=== PATIENT | female | born 1940 | race Caucasian/White ===

== ENCOUNTER 2018-12-28 11:02 | Emergency (ER) | payer OTHER ==
[~2018-12-28] VITALS: Ht 147.3 cm; Wt 43.1 kg
[2018-12-28] MEDS ORDERED: KEFLEX500 M1 PO (11:14)
[2018-12-28] MEDS ORDERED: TRAMADOL 50 MG50 MG PO (11:15)
[2018-12-28] MEDS ORDERED: NORCO 10-325 T1 EACH (11:15)
[2018-12-28] MEDS ORDERED: SYNTHROID25 MC1 PO (11:16)
[2018-12-28] MEDS ORDERED: NEURONTIN600 MG PO (11:16)
[2018-12-28] MEDS ORDERED: VITAMIN D3400 UNIT PO (11:17)
[2018-12-28] MEDS ORDERED: [UNRECOGNIZED DRUG - OTHER] PO (11:18)
[2018-12-28 11:33] LABS: HEMATOCRIT 35.2 % (37.0-47.0); HEMOGLOBIN 11.6 gm/dL (12.0-15.0); MCH 28.4 pg (26.0-34.0); MCHC 33.1 g/dL (28.0-37.0); MPV 7.7 fl. (7.2-11.1); NUCLEATED RBCS 0 /100WBC; PLATELET COUNT* 404 thou/uL (150-400); RBC 4.09 mil/uL (4.20-5.00); RDW-CV 13.4 % (10.5-14.5); WBC 6.2 thou/uL (4.0-11.0)
[2018-12-28 11:43] LABS: ANION GAP 9 mmol/L (7-16); BUN 9 mg/dL (7-18); CALCIUM 8.9 mg/dL (8.5-10.1); CHLORIDE 106 mmol/L (98-107); CO2 26 mmol/L (21-32); CREATININE 0.6 mg/dL (0.6-1.3); GLUCOSE 90 mg/dL (70-99); POTASSIUM 3.9 mmol/L (3.5-5.1); SODIUM 141 mmol/L (136-145)
[2018-12-28 11:55] LABS: ALBUMIN 3.3 g/dL (3.4-5.0); ALKALINE PHOSPHATASE 293 U/L (46-116); SGOT 47 U/L (15-37); SGPT 85 U/L (30-65); TOTAL BILIRUBIN 0.3 mg/dL (<0.1-1.0); TOTAL PROTEIN 6.6 g/dL (6.4-8.2); TROPONIN-I LEVEL <0.06 ng/mL (<0.06)
[2018-12-28 12:22] LABS: URINE BILIRUBIN NEGATIVE (Negative); URINE BLOOD NEGATIVE (Negative); URINE CLARITY CLEAR; URINE COLOR YELLOW; URINE GLUCOSE-RANDOM NEGATIVE (Negative); URINE KETONES NEGATIVE (Negative); URINE LEUKOCYTES-REFLEX NEGATIVE (Negative); URINE NITRITE-REFLEX NEGATIVE (Negative); URINE PROTEIN NEGATIVE (Negative); URINE SPECIFIC GRAVITY 1.015 (1.005-1.030); URINE UROBILINOGEN 0.2 E.U./dl (0.2-1.0)
[2018-12-28 12:26] LABS: ABSOLUTE EOSINOPHILS 1.3 thou/uL (0.0-0.7); ABSOLUTE LYMPHOCYTES 1.1 thou/uL (0.8-5.3); ABSOLUTE MONOCYTES 0.3 thou/uL (0.0-1.2); ABSOLUTE NEUTROPHILS 3.5 thou/uL (1.6-8.1); PLATELET ESTIMATE INCREASED
[2018-12-28 13:06] VITALS: BP 145/63
--- NOTE | 2018-12-31 12:55 | EKG ---
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
== END 2018-12-28 13:06 | disposition home or self-care (01) ==
LOC: M.ERS 11:02
PROVIDERS: Nurse Practitioner Family
DX: R53.1 Weakness (principal); R42 Dizziness and giddiness; G62.9 Polyneuropathy, unspecified; E03.9 Hypothyroidism, unspecified; Z88.5 Allergy status to narcotic agent; Z86.2 Personal history of diseases of the blood and blood-forming organs and certain disorders involving the immune mechanism; Z90.49 Acquired absence of other specified parts of digestive tract

== ENCOUNTER 2020-01-12 23:19 | Inpatient (IN) | payer OTHER ==
[~2020-01-12] VITALS: Ht 149.9 cm; Wt 48.5 kg
[~2020-01-12 23:19] MED LIST: KEFLEX500 M1 PO; NEURONTIN600 MG PO; NORCO 10-325 T1 EACH; SYNTHROID25 MC1 PO; TRAMADOL 50 MG50 MG PO; VITAMIN D-40010 MCG PO; [UNRECOGNIZED DRUG - OTHER] PO
[2020-01-12 23:23] VITALS: BP 152/64
[2020-01-12] MEDS ORDERED: NAMZARIC 28 MG1 EACH PO (23:30)
[2020-01-13 00:03] LABS: ABSOLUTE BASOPHILS 0.1 thou/uL (0.0-0.2); ABSOLUTE LYMPHOCYTES 0.7 thou/uL (0.8-5.3); ABSOLUTE MONOCYTES 1.7 thou/uL (0.0-1.2); ABSOLUTE NEUTROPHILS 13.5 thou/uL (1.6-8.1); BASOPHILS 0.3 %; HEMATOCRIT 37.3 % (37.0-47.0); HEMOGLOBIN 12.5 gm/dL (12.0-15.0); LYMPHOCYTES 4.6 %; MCH 28.3 pg (26.0-34.0); MCHC 33.4 g/dL (28.0-37.0); MCV 84.6 fL (80.0-100.0); MONOCYTES 10.8 %; MPV 7.7 fl. (7.2-11.1); NUCLEATED RBCS 0 /100WBC; PLATELET COUNT* 284 thou/uL (150-400); POLYS 84.3 %; RBC 4.41 mil/uL (4.20-5.00); RDW-CV 14.2 % (10.5-14.5); WBC 16.1 thou/uL (4.0-11.0)
[2020-01-13 00:21] LABS: CALCIUM 8.9 mg/dL (8.5-10.1); CREATININE 1.3 mg/dL (0.6-1.3); POTASSIUM 3.5 mmol/L (3.5-5.1)
[2020-01-13 00:25] LABS: ALBUMIN 3.2 g/dL (3.4-5.0); MAGNESIUM 2.2 mg/dL (1.8-2.4); TOTAL BILIRUBIN 0.3 mg/dL (<0.1-1.0); TOTAL PROTEIN 7.8 g/dL (6.4-8.2)
[2020-01-13 01:57] LABS: URINE BILIRUBIN NEGATIVE (Negative); URINE BLOOD 2+ (Negative); URINE CLARITY CLOUDY; URINE COLOR YELLOW; URINE GLUCOSE-RANDOM NEGATIVE (Negative); URINE KETONES NEGATIVE (Negative); URINE PROTEIN 2+ (Negative); URINE SPECIFIC GRAVITY 1.025 (1.005-1.030); URINE UROBILINOGEN 0.2 E.U./dl (0.2-1.0)
[2020-01-13 02:01] LABS: URINE LEUKOCYTES-REFLEX 2+ (Negative); URINE NITRITE-REFLEX POSITIVE (Negative)
[2020-01-13 02:03] LABS: CASTS None Seen /LPF (None Seen); SQUAMOUS 0-3 Few /LPF (0-3)
[2020-01-13 02:04] LABS: BACTERIA-REFLEX >30 Many /HPF (None Seen); CRYSTALS None Seen /LPF (None Seen); URINE RBC None Seen /HPF (0-2); URINE WBC-REFLEX >25 Many /HPF (0-5)
[2020-01-13 03:20] VITALS: BP 109/46
[2020-01-13 03:40] VITALS: BP 101/50
[2020-01-13] MEDS ORDERED: UNISOM25 MG PO (06:49)
--- NOTE | 2020-01-13 07:06 | NUR ---
RECEIVED REPORT FROM ER NURSE CLAUDE. PATIENT BROUGHT UP TO FLOOR AT 0340. PATIENT ORIENTED TO UNIT, ROOM, BED, CALL-LIGHT, AND HOSPITAL POLICY. BED LOCKED AND IN LOWEST POSITION. FALL PRECAUTIONS IN PLACE FOR PATIENT SAFETY. ASSESSMENT COMPLETED CHARTED. CARDIAC MONITORING IN PLACE. HOURLY ROUNDING IN PLACE FOR PATIENT SAFETY. CLWR.
[2020-01-13 08:00] VITALS: BP 141/73
--- NOTE | 2020-01-13 08:43 | NUR ---
ASSUMED PT. CARE AND RECEIVED REPORT AT 0730. PT A/OX4, VSS, PT. SHIVERING IN BED, REPEATEDLY STATING SHE DOES NOT FEEL WELL. REPORTS NAUSEA AND BACK PAIN 03/15. PT. PALE, OXYGEN AT 85-87% ON RA, PLACED ON 2L WITH >90% IMPROVEMENT. PT. TREATED WITH MORPHINE AND ZOFRAN AND CURRENTLY RESTING COMFORTABLY. CALL LIGHT IN REACH, FALL PRECAUTIONS IN PLACE. WILL CONTINUE WITH PLAN OF CARE.
--- NOTE | 2020-01-13 14:10 | NUR ---
Pt is A&O. Resides at home with her kids. Independent, share IADLs, does not drive. Pt uses a walker in the home and a wc in the community, Pt also has a cane. No home o2. No hx of HH or SNF. Goal is home at dc. Per , Pt on IVABX and fluids, anticipate dc in a few days. Following.
--- NOTE | 2020-01-13 15:28 | EKG ---
[place] [address] ELECTROCARDIOGRAM REPORT Name: DAVID VOGEL I Room: [address] IN 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 : 1940 Requested By: Scarlett Berkowitz Order Number: [id number] MD: Travis Obrien Measurements Intervals [place] Rate: 109 P: 52 [place]: 134 QRS: 73 QRSD: 150 T: 2 QT: 353 QTc: 476 Interpretive Statements Sinus tachycardia Right bundle branch block Compared to ECG 12/28/2018 11:56:49 Sinus rhythm no longer present Electronically Signed On 01-13-2020 15:27:03 CDT by Travis Obrien [email or web address] <ELECTRONICALLY SIGNED> By: Travis Obrien MD, FACC 01/13/20 1527 0001 0001 Travis Obrien MD, [facility] /EPI
[2020-01-13 16:03] VITALS: BP 112/55
--- NOTE | 2020-01-13 18:35 | NUR ---
PT. IMPROVING THROUGH OUT THE DAY. PT. HAD NO MORE EPISODES OF SHIVERING. FAMILY BROUGHT IN PT. 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 PT. STATES SHE IS FEELING BETTER THIS EVENING.
[2020-01-13 20:00] VITALS: BP 105/53
--- NOTE | 2020-01-14 04:46 | NUR ---
ASSUMED PT CARE AT APPROX 1930. PT IS AWAKE AND ORIENTED X4, BUT FORGETFUL AND HAS SOME PERIODS OF CONFUSION-PT IS EASILY REDIRECTABLE. spO2 IS 88-89 ON ROOM AIR, PT IS PLACED ON 2L OF O2/NC-spO2 IS 92-95%, PT DENIES SOA/. PT C/O BACK PAIN THAT IS PARTIALLY RELIEVED BY PAIN MEDS GIVEN PER MAR. CERVICAL PROLAPSE NOTED, PT SAID SHE "USED TO HAVE SOMETHING TO KEEP IT IN, BUT IT GOT LOST WHEN THEY MOVED". PT IS ABLE TO REST SOME. CALL LIGHT IS WITHIN REACH. HOURLY ROUNDING DONE FOR PT SAFETY. HIGH FALL PRECAUTIONS IN PLACE.
[2020-01-14 08:00] VITALS: BP 114/60
--- NOTE | 2020-01-14 08:00 | NUR ---
ASSUMED CARE OF PATIENT FROM NIGHT NURSE. PT IS ALERT BUT FORGETFUL. PT WAS EDUCATED ON POC, DISEASE PROCESS AND USING THE CALL LIGHT FOR ASSISTANCE. WILL CONTINUE TO MONITOR. BED IN LOWEST POSITION, CALL LIGHT IN REACH.
--- NOTE | 2020-01-14 12:05 | NUR ---
Per , continue IVABX today, anticipate dc to home tomorrow.
[2020-01-14 16:40] VITALS: BP 105/56
[2020-01-14 20:00] VITALS: BP 107/50
--- NOTE | 2020-01-15 04:50 | NUR ---
PATIENT SLEPT WELL DURING THIS SHIFT. PT UNABLE TO REMEMBER TO USE CALL LIGHT PRIOR TO GETTING OUT OF BED. PT UP TO BATHROOM WITH MAX ASSIST OF TWO. A WALKER WAS PROVIDED TO HELP PT BACK TO BED WITH ASSIST OF ONE. PT HAD BOWEL MOVEMENT. PT WITH MCGHEE CATHETER TO DEPENDENT DRAIN WITH YELLOW URINE. PT DENIES PAIN/NAUSEA. SPOKE WITH SON ABOUT PLAN OF CARE. SON REQUESTED PT NOT BE GIVEN ULTRAM BECAUSE HE FEELS IT MAKES HER MORE CONFUSED AND HAS LINGERING EFFECT FOR HOURS AFTERWARDS. PT WITH FLUIDS/ANTIBIOTICS INFUSING PER DR ORDER. FREQUENTLY USED ITEMS AND CALL LIGHT WITHIN REACH. SIDERAILS UPX3 AND BED ALARM ON. FREQUENT OBSERVATIONS MADE. WILL CONTINUE TO MONITOR.
[2020-01-15 09:00] VITALS: BP 129/71
[2020-01-15] MEDS ORDERED: CEFDINIR300 MG PO (09:53)
[2020-01-15 11:09] VITALS: BP 107/50
--- NOTE | 2020-01-15 13:05 | NUR ---
RENETTA was informed pt will dc today with need for HH services. RENETTA spoke with pt who agreed with plan and did not have a preference for HH agency. Pt's family did not have a preference and chose [facility], RENETTA faxed referral and orders/med list to [facility]. RENETTA provided list of PCP as pt needs to establish a PCP in the area and Dr Lucero agreed to follow HH for a while until pt is able to establish with a PCP to follow. 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
--- NOTE | 2020-01-15 13:20 | NUR ---
PATIENT DISCHARGED TO HOME WITH HOME HEALTH. DISCHARGE PAPERS REVIEWED AND SIGNED. SPOKE WITH SHI KAY AND REVIEWED DISCHARGE. PRESCRIPTION GIVEN. PCP INFORMATION GIVEN. IV REMOVED. PATIENT BELONGINGS PACKED. PATIENT TAKEN BY WHEELCHAIR TO EXIT. LEFT WITH FAMILY.
--- NOTE | 2020-01-16 12:42 | NUR ---
PT ORDERS RECEIVED AND ACKNOWLEDGED. PT DISCHARGES PRIOR TO COMPELTION OF PT INTERVENTIONS
== END 2020-01-15 13:20 | disposition home health service (06) | DRG 690 ==
LOC: M.ERS 23:19 → M.2W 01-13 02:35 → M.TBA-ER 01-13 02:35 → M.2W 01-13 03:51 → M.3W 01-14 16:49
PROVIDERS: Emergency Medicine; ADMIT Internal Medicine; ATTEND Internal Medicine
DX: N30.01 Acute cystitis with hematuria (principal); R65.10 Systemic inflammatory response syndrome (SIRS) of non-infectious origin without acute organ dysfunction; E03.9 Hypothyroidism, unspecified; F03.90 Unspecified dementia, unspecified severity, without behavioral disturbance, psychotic disturbance, mood disturbance, and anxiety; G62.9 Polyneuropathy, unspecified; Z90.49 Acquired absence of other specified parts of digestive tract; Z87.81 Personal history of (healed) traumatic fracture; Z88.6 Allergy status to analgesic agent

== ENCOUNTER 2020-05-10 15:24 | Emergency (ER) | payer OTHER ==
[~2020-05-10] VITALS: Ht 147.3 cm; Wt 43.6 kg
[~2020-05-10 15:24] MED LIST changes: +CEFDINIR300 MG PO; +NAMZARIC 28 MG1 EACH PO; +UNISOM25 MG PO
[2020-05-10] MEDS ORDERED: B-125000 MC1 (15:47)
[2020-05-10 16:28] LABS: HEMATOCRIT 38.7 % (37.0-47.0); HEMOGLOBIN 13.3 gm/dL (12.0-15.0); MCH 28.5 pg (26.0-34.0); MCHC 34.5 g/dL (28.0-37.0); MCV 82.6 fL (80.0-100.0); MPV 8.1 fl. (7.2-11.1); NUCLEATED RBCS 0 /100WBC; PLATELET COUNT* 256 thou/uL (150-400); RBC 4.68 mil/uL (4.20-5.00); WBC 14.1 thou/uL (4.0-11.0)
[2020-05-10 16:31] LABS: CALCIUM 9.1 mg/dL (8.5-10.1); POTASSIUM 3.3 mmol/L (3.5-5.1)
[2020-05-10 16:36] LABS: ALBUMIN 3.2 g/dL (3.4-5.0); TOTAL BILIRUBIN 0.5 mg/dL (<0.1-1.0); TOTAL PROTEIN 7.5 g/dL (6.4-8.2)
[2020-05-10 17:07] LABS: ABSOLUTE LYMPHOCYTES 0.4 thou/uL (0.8-5.3); ABSOLUTE MONOCYTES 1.7 thou/uL (0.0-1.2); PLATELET ESTIMATE ADEQUATE
[2020-05-10 17:45] LABS: URINE BILIRUBIN NEGATIVE (Negative); URINE BLOOD 1+ (Negative); URINE CLARITY SL CLOUDY; URINE COLOR YELLOW; URINE GLUCOSE-RANDOM NEGATIVE (Negative); URINE KETONES 1+ (Negative); URINE LEUKOCYTES-REFLEX 1+ (Negative); URINE PROTEIN 2+ (Negative); URINE SPECIFIC GRAVITY >= 1.030 (1.005-1.030)
[2020-05-10 17:46] LABS: URINE NITRITE-REFLEX POSITIVE (Negative)
[2020-05-10 17:57] LABS: MUCUS 4-6 Moderate strn/LPF (None Seen); SQUAMOUS >10 Many /LPF (0-3); URINE WBC-REFLEX >25 Many /HPF (0-5)
[2020-05-10 17:58] LABS: BACTERIA-REFLEX >30 Many /HPF (None Seen); CASTS None Seen /LPF (None Seen); HYALINE CASTS 0-3 Few /LPF (None Seen); WBC CLUMPS Few (None Seen)
[2020-05-10 17:59] LABS: CRYSTALS None Seen /LPF (None Seen); URINE RBC 0-2 Rare /HPF (0-2)
[2020-05-10] MEDS ORDERED: KEFLEX500 M1 PO (18:46)
[2020-05-10 18:58] VITALS: BP 135/67
== END 2020-05-10 18:58 | disposition home or self-care (01) ==
LOC: M.ERS 15:24
PROVIDERS: Nurse Practitioner Family; Personal Emergency Response Attendant
DX: N39.0 Urinary tract infection, site not specified (principal); E03.9 Hypothyroidism, unspecified; Z90.49 Acquired absence of other specified parts of digestive tract; Z79.899 Other long term (current) drug therapy; Z88.6 Allergy status to analgesic agent

== ENCOUNTER 2020-05-11 17:35 | Inpatient (IN) | payer OTHER ==
[~2020-05-11] VITALS: Ht 147.3 cm; Wt 43.1 kg
[~2020-05-11 17:35] MED LIST changes: +B-125000 MC1
[2020-05-11 17:41] VITALS: BP 114/48
[2020-05-11 18:16] LABS: ABSOLUTE LYMPHOCYTES 0.5 thou/uL (0.8-5.3); ABSOLUTE MONOCYTES 1.6 thou/uL (0.0-1.2); ABSOLUTE NEUTROPHILS 10.2 thou/uL (1.6-8.1); BASOPHILS 0.2 %; HEMATOCRIT 34.8 % (37.0-47.0); HEMOGLOBIN 11.9 gm/dL (12.0-15.0); LYMPHOCYTES 3.9 %; MCH 28.1 pg (26.0-34.0); MCHC 34.2 g/dL (28.0-37.0); MPV 7.4 fl. (7.2-11.1); NUCLEATED RBCS 0 /100WBC; PLATELET COUNT* 259 thou/uL (150-400); POLYS 82.9 %; RBC 4.25 mil/uL (4.20-5.00); RDW-CV 13.2 % (10.5-14.5); WBC 12.3 thou/uL (4.0-11.0)
[2020-05-11 18:24] LABS: CALCIUM 8.8 mg/dL (8.5-10.1); CREATININE 1.1 mg/dL (0.6-1.3)
[2020-05-11 18:28] LABS: ALBUMIN 2.7 g/dL (3.4-5.0); MAGNESIUM 2.1 mg/dL (1.8-2.4); TOTAL BILIRUBIN 0.5 mg/dL (<0.1-1.0); TOTAL PROTEIN 6.8 g/dL (6.4-8.2)
[2020-05-11 18:29] LABS: POTASSIUM 2.9 mmol/L (3.5-5.1)
[2020-05-11 18:31] LABS: BE -2.3 mmol/L (-2 to +3); PCO2 29.8 mmHg (35.0-45.0); pH 7.458 (7.340-7.450)
[2020-05-11 20:19] VITALS: BP 115/56
[2020-05-11 20:30] VITALS: BP 113/53
[2020-05-12 00:43] LABS: URINE BLOOD 1+ (Negative); URINE CLARITY CLEAR; URINE COLOR YELLOW; URINE GLUCOSE-RANDOM NEGATIVE (Negative); URINE KETONES TRACE (Negative); URINE LEUKOCYTES-REFLEX TRACE (Negative); URINE NITRITE-REFLEX NEGATIVE (Negative); URINE PROTEIN 2+ (Negative); URINE SPECIFIC GRAVITY 1.025 (1.005-1.030)
[2020-05-12 00:45] LABS: ICTOTEST (BILI CONFIRMATORY) Negative (Negative); URINE BILIRUBIN 1+ (Negative)
[2020-05-12 00:52] LABS: BACTERIA-REFLEX 1-9 Few /HPF (None Seen); CASTS None Seen /LPF (None Seen); CRYSTALS None Seen /LPF (None Seen); SQUAMOUS 0-3 Few /LPF (0-3); URINE RBC 0-2 Rare /HPF (0-2); URINE WBC-REFLEX 6-15 Few /HPF (0-5)
[2020-05-12 04:38] LABS: HEMOGLOBIN 11.5 gm/dL (12.0-15.0); MCHC 33.9 g/dL (28.0-37.0); MCV 82.8 fL (80.0-100.0); MPV 8.4 fl. (7.2-11.1); RBC 4.11 mil/uL (4.20-5.00); RDW-CV 13.4 % (10.5-14.5)
[2020-05-12 05:06] LABS: ALBUMIN 2.6 g/dL (3.4-5.0); CALCIUM 8.6 mg/dL (8.5-10.1); MAGNESIUM 2.1 mg/dL (1.8-2.4); TOTAL BILIRUBIN 0.3 mg/dL (<0.1-1.0); TOTAL PROTEIN 6.5 g/dL (6.4-8.2)
[2020-05-12 07:50] VITALS: BP 111/49
[2020-05-12 16:40] VITALS: BP 129/59
[2020-05-12 20:00] VITALS: BP 149/67
[2020-05-13 04:29] LABS: ABSOLUTE EOSINOPHILS 0.1 thou/uL (0.0-0.7); ABSOLUTE LYMPHOCYTES 0.6 thou/uL (0.8-5.3); ABSOLUTE MONOCYTES 1.2 thou/uL (0.0-1.2); ABSOLUTE NEUTROPHILS 8.6 thou/uL (1.6-8.1); BASOPHILS 0.1 %; EOSINOPHILS 0.5 %; HEMATOCRIT 32.9 % (37.0-47.0); HEMOGLOBIN 11.4 gm/dL (12.0-15.0); LYMPHOCYTES 6.1 %; MCH 28.6 pg (26.0-34.0); MCHC 34.6 g/dL (28.0-37.0); MCV 82.6 fL (80.0-100.0); MONOCYTES 11.4 %; MPV 8.2 fl. (7.2-11.1); NUCLEATED RBCS 0 /100WBC; PLATELET COUNT* 298 thou/uL (150-400); POLYS 81.9 %; RBC 3.98 mil/uL (4.20-5.00); RDW-CV 13.5 % (10.5-14.5); WBC 10.5 thou/uL (4.0-11.0)
[2020-05-13 04:45] LABS: CALCIUM 8.4 mg/dL (8.5-10.1); CREATININE 0.8 mg/dL (0.6-1.3)
[2020-05-13 08:15] VITALS: BP 120/63
[2020-05-13 16:00] VITALS: BP 121/63
[2020-05-13 20:00] VITALS: BP 140/59
[2020-05-14 07:40] VITALS: BP 143/59
[2020-05-14] MEDS ORDERED: CEFUROXIME500 MG PO (11:01)
[2020-05-14 11:09] VITALS: BP 143/59
[2020-05-14 11:50] VITALS: BP 143/59
[2020-05-14 12:42] VITALS: BP 143/59
== END 2020-05-14 12:50 | disposition home health service (06) | DRG 690 ==
LOC: M.ERS 17:35 → M.3W 18:56 → M.TBA-ER 18:56 → M.3W 20:30 → M.ORTHSURG 05-13 18:57
PROVIDERS: Internal Medicine; Personal Emergency Response Attendant; ADMIT Internal Medicine; ATTEND Internal Medicine
DX: N39.0 Urinary tract infection, site not specified (principal); Z68.1 Body mass index [BMI] 19.9 or less, adult; E44.0 Moderate protein-calorie malnutrition; G62.9 Polyneuropathy, unspecified; E03.9 Hypothyroidism, unspecified; F03.90 Unspecified dementia, unspecified severity, without behavioral disturbance, psychotic disturbance, mood disturbance, and anxiety; T50.905A Adverse effect of unspecified drugs, medicaments and biological substances, initial encounter; M19.90 Unspecified osteoarthritis, unspecified site; B96.20 Unspecified Escherichia coli [E. coli] as the cause of diseases classified elsewhere; R62.7 Adult failure to thrive; R19.7 Diarrhea, unspecified; R63.0 Anorexia; Z20.828 Contact with and (suspected) exposure to other viral communicable diseases; Z23 Encounter for immunization; Z88.6 Allergy status to analgesic agent; Z86.73 Personal history of transient ischemic attack (TIA), and cerebral infarction without residual deficits; Z79.899 Other long term (current) drug therapy

== ENCOUNTER 2020-07-02 14:14 | Emergency (ER) | payer OTHER ==
[~2020-07-02] VITALS: Ht 147.3 cm; Wt 43.5 kg
[~2020-07-02 14:14] MED LIST changes: +CEFUROXIME500 MG PO
[2020-07-02 15:01] LABS: URINE BLOOD NEGATIVE (Negative); URINE CLARITY CLEAR; URINE COLOR YELLOW; URINE GLUCOSE-RANDOM NEGATIVE (Negative); URINE KETONES 1+ (Negative); URINE LEUKOCYTES-REFLEX NEGATIVE (Negative); URINE NITRITE-REFLEX NEGATIVE (Negative); URINE PROTEIN TRACE (Negative); URINE SPECIFIC GRAVITY >= 1.030 (1.005-1.030)
[2020-07-02 15:02] LABS: ABSOLUTE LYMPHOCYTES 0.8 thou/uL (0.8-5.3); ABSOLUTE MONOCYTES 0.3 thou/uL (0.0-1.2); ABSOLUTE NEUTROPHILS 2.7 thou/uL (1.6-8.1); BASOPHILS 0.5 %; EOSINOPHILS 0.1 %; HEMATOCRIT 39.4 % (37.0-47.0); HEMOGLOBIN 13.3 gm/dL (12.0-15.0); LYMPHOCYTES 20.3 %; MCH 28.3 pg (26.0-34.0); MCHC 33.6 g/dL (28.0-37.0); MCV 84.1 fL (80.0-100.0); MONOCYTES 7.6 %; NUCLEATED RBCS 0 /100WBC; PLATELET COUNT* 305 thou/uL (150-400); POLYS 71.5 %; RBC 4.69 mil/uL (4.20-5.00); WBC 3.8 thou/uL (4.0-11.0)
[2020-07-02 15:14] LABS: ICTOTEST (BILI CONFIRMATORY) Negative (Negative); URINE BILIRUBIN 1+ (Negative)
[2020-07-02 15:18] LABS: CREATININE 0.9 mg/dL (0.6-1.3); POTASSIUM 3.4 mmol/L (3.5-5.1)
[2020-07-02 15:22] LABS: ALBUMIN 3.7 g/dL (3.4-5.0); TOTAL BILIRUBIN 0.4 mg/dL (<0.1-1.0); TOTAL PROTEIN 7.8 g/dL (6.4-8.2)
[2020-07-02] MEDS ORDERED: ZPAK PO (16:44)
[2020-07-02 17:15] VITALS: BP 135/59
--- NOTE | 2020-07-03 12:44 | EKG ---
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 Physical: [facility] : 1940 Requested By: Salas Crocker Order Number: [id number] MD: Travis Obrien Measurements Intervals [place] Rate: 84 P: 72 MT: 129 QRS: 89 QRSD: 139 T: 30 QT: 385 QTc: 456 Interpretive Statements Sinus rhythm Right bundle branch block Compared to ECG 01/13/2020 00:01:06 Sinus tachycardia no longer present Electronically Signed On 07-03-2020 12:44:43 RADIOLOGY TRANSCRIPTIONIST by Travis Obrien [email or web address] <ELECTRONICALLY SIGNED> By: Travis Obrien MD, FACC 07/03/20 1244 1521 1521 Travis Obrien MD, [facility] /EPI
== END 2020-07-02 17:15 | disposition home or self-care (01) ==
LOC: M.ERS 14:14
PROVIDERS: Physician Assistant
DX: U07.1 COVID-19 (principal); R91.8 Other nonspecific abnormal finding of lung field; R10.84 Generalized abdominal pain; G62.9 Polyneuropathy, unspecified; E03.9 Hypothyroidism, unspecified; Z90.49 Acquired absence of other specified parts of digestive tract; Z86.73 Personal history of transient ischemic attack (TIA), and cerebral infarction without residual deficits; Z86.2 Personal history of diseases of the blood and blood-forming organs and certain disorders involving the immune mechanism; Z88.5 Allergy status to narcotic agent

== ENCOUNTER 2021-03-13 15:37 | Inpatient (IN) | payer OTHER ==
[~2021-03-13] VITALS: Ht 147.3 cm; Wt 43.1 kg
[~2021-03-13 15:37] MED LIST changes: +ZPAK PO
[2021-03-13 15:40] VITALS: BP 122/51
[2021-03-13 16:14] LABS: NUCLEATED RBCS 0 /100WBC
[2021-03-13 16:15] LABS: MCH 20.5 pg (26.0-34.0); MCV 68.2 fL (80.0-100.0); MPV 7.2 fl. (7.2-11.1); PLATELET COUNT* 361 thou/uL (150-400); RBC 2.14 mil/uL (4.20-5.00); RDW-CV 19.2 % (10.5-14.5); WBC 7.7 thou/uL (4.0-11.0)
[2021-03-13 16:20] LABS: HEMATOCRIT 14.6 % (37.0-47.0); HEMOGLOBIN 4.4 gm/dL (12.0-15.0)
[2021-03-13 16:23] LABS: CALCIUM 8.3 mg/dL (8.5-10.1); CREATININE 0.8 mg/dL (0.6-1.3); POTASSIUM 3.8 mmol/L (3.5-5.1)
[2021-03-13 16:27] LABS: URINE BILIRUBIN NEGATIVE (Negative); URINE BLOOD NEGATIVE (Negative); URINE CLARITY CLEAR; URINE COLOR YELLOW; URINE GLUCOSE-RANDOM NEGATIVE (Negative); URINE KETONES NEGATIVE (Negative); URINE LEUKOCYTES-REFLEX NEGATIVE (Negative); URINE NITRITE-REFLEX NEGATIVE (Negative); URINE PROTEIN NEGATIVE (Negative); URINE UROBILINOGEN 0.2 E.U./dl (0.2-1.0)
[2021-03-13 16:34] LABS: ALBUMIN 3.3 g/dL (3.4-5.0); TOTAL BILIRUBIN 0.2 mg/dL (<0.1-1.0); TOTAL PROTEIN 5.9 g/dL (6.4-8.2)
[2021-03-13] MEDS ORDERED: CEPHALEXIN250 MG PO (16:38)
[2021-03-13] MEDS ORDERED: ARICEPT10 M1 PO (16:38)
[2021-03-13] MEDS ORDERED: MEMANTINE HCL E28 MG PO (16:39)
[2021-03-13 17:12] LABS: ABSOLUTE BASOPHILS 0.2 thou/uL (0.0-0.2); ABSOLUTE EOSINOPHILS 0.1 thou/uL (0.0-0.7); ABSOLUTE LYMPHOCYTES 2.1 thou/uL (0.8-5.3); ABSOLUTE NEUTROPHILS 5.4 thou/uL (1.6-8.1); HYPOCHROMASIA 3+; MICROCYTES 3+
[2021-03-13 17:13] LABS: ANISOCYTOSIS 1+; SCHISTOCYTES 1+
[2021-03-13 17:14] LABS: PLATELET ESTIMATE ADEQUATE
--- NOTE | 2021-03-13 19:15 | NUR ---
CONSTANCE DAUGHTER IN LAW- CALL IF ANY CHANGES. [phone]
[2021-03-13 20:11] LABS: ABSOLUTE BASOPHILS 0.1 thou/uL (0.0-0.2); ABSOLUTE MONOCYTES 0.5 thou/uL (0.0-1.2); ABSOLUTE NEUTROPHILS 5.1 thou/uL (1.6-8.1); BASOPHILS 1.2 %; EOSINOPHILS 0.4 %; HEMATOCRIT 20.1 % (37.0-47.0); LYMPHOCYTES 14.6 %; MCH 22.4 pg (26.0-34.0); MCHC 30.6 g/dL (28.0-37.0); MONOCYTES 6.9 %; MPV 6.9 fl. (7.2-11.1); NUCLEATED RBCS 0 /100WBC; PLATELET COUNT* 337 thou/uL (150-400); POLYS 76.9 %; RBC 2.74 mil/uL (4.20-5.00); RDW-CV 21.6 % (10.5-14.5); WBC 6.6 thou/uL (4.0-11.0)
[2021-03-13 20:17] LABS: HEMOGLOBIN 6.1 gm/dL (12.0-15.0); MCV 73.2 fL (80.0-100.0)
[2021-03-13 21:00] VITALS: BP 128/54
--- NOTE | 2021-03-13 23:09 | NUR ---
PAGED DR ROSALES RE HGB 6.1 AND COMPLETION OF X1 PROTONIX GTT
[2021-03-14] VITALS (10 sets, daily range): BP systolic 113–145; BP diastolic 42–84
[2021-03-14 06:20] LABS: ABSOLUTE BASOPHILS 0.1 thou/uL (0.0-0.2); ABSOLUTE EOSINOPHILS 0.1 thou/uL (0.0-0.7); ABSOLUTE LYMPHOCYTES 1.3 thou/uL (0.8-5.3); ABSOLUTE MONOCYTES 0.6 thou/uL (0.0-1.2); ABSOLUTE NEUTROPHILS 5.1 thou/uL (1.6-8.1); BASOPHILS 1.2 %; EOSINOPHILS 0.9 %; HEMATOCRIT 25.9 % (37.0-47.0); LYMPHOCYTES 18.5 %; MCH 25.2 pg (26.0-34.0); MCHC 33.2 g/dL (28.0-37.0); MCV 75.9 fL (80.0-100.0); MONOCYTES 8.2 %; MPV 7.1 fl. (7.2-11.1); NUCLEATED RBCS 0 /100WBC; PLATELET COUNT* 322 thou/uL (150-400); POLYS 71.2 %; RBC 3.41 mil/uL (4.20-5.00); RDW-CV 21.3 % (10.5-14.5); WBC 7.2 thou/uL (4.0-11.0)
[2021-03-14 06:21] LABS: HEMOGLOBIN 8.6 gm/dL (12.0-15.0)
[2021-03-14 06:29] LABS: ALBUMIN 3.5 g/dL (3.4-5.0); CALCIUM 8.3 mg/dL (8.5-10.1); CREATININE 0.9 mg/dL (0.6-1.3); POTASSIUM 3.6 mmol/L (3.5-5.1); TOTAL BILIRUBIN 1.1 mg/dL (<0.1-1.0); TOTAL PROTEIN 6.1 g/dL (6.4-8.2)
[2021-03-14 07:40] LABS: ANISOCYTOSIS 2+; PLATELET ESTIMATE ADEQUATE
--- NOTE | 2021-03-14 08:09 | NUR ---
DR. ROSALES PAGED REGARDING PT REQUEST OF NAUSEA MEDICATION AND TOPICAL PAIN CREAM FOR SCRATCH/SORE ON L NIPPLE.
[2021-03-14 09:48] LABS: % SATURATION 17 % (20-39); IRON 82 ug/dL (50-175)
--- NOTE | 2021-03-14 10:05 | EKG ---
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: CHA : 1940 Requested By: Rudi Schultz Order Number: [id number] MD: Carmine Mike Measurements Intervals [place] Rate: 87 P: 57 SC: 140 QRS: 69 QRSD: 139 T: 11 QT: 404 QTc: 486 Interpretive Statements Sinus rhythm Right bundle branch block Compared to ECG 07/02/2020 15:21:55 No significant changes Electronically Signed On 03-14-2021 10:05:21 CDT by Carmine Mike [email or web address] <ELECTRONICALLY SIGNED> By: Carmine Mike MD, [facility] 03/14/21 1005 1555 1555 Carmine Mike MD, [facility] /EPI
[2021-03-14 13:20] LABS: HEMATOCRIT 24.9 % (37.0-47.0); HEMOGLOBIN 7.9 gm/dL (12.0-15.0)
[2021-03-15 01:01] VITALS: BP 127/67
[2021-03-15 04:03] VITALS: BP 130/54
[2021-03-15 05:08] LABS: HEMATOCRIT 23.9 % (37.0-47.0); HEMOGLOBIN 7.8 gm/dL (12.0-15.0); MCH 24.8 pg (26.0-34.0); MCHC 32.6 g/dL (28.0-37.0); MCV 76.1 fL (80.0-100.0); MPV 7.3 fl. (7.2-11.1); RBC 3.14 mil/uL (4.20-5.00); RDW-CV 20.9 % (10.5-14.5); WBC 7.2 thou/uL (4.0-11.0)
[2021-03-15 05:19] LABS: CALCIUM 8.3 mg/dL (8.5-10.1); CREATININE 0.8 mg/dL (0.6-1.3); POTASSIUM 3.8 mmol/L (3.5-5.1)
--- NOTE | 2021-03-15 07:15 | NUR ---
CHANGE OF SHIFT REPORT PATIENT SEEN AT BEDSIDE, IN BED RESTING ASSUMED PATIENT CARE
[2021-03-15 08:00] VITALS: BP 138/66
--- NOTE | 2021-03-15 10:21 | NUR ---
CM ASSESSMENT: PT A&O, AND NORMALLY INDEPENDENT WITH ADL'S. PT RESIDES AT HOME WITH HER SON AND DIL. PT USES A WALKER FOR MOBILITY, BUT ALSO OWNS A WHEELCHAIR. PT USES A BATH BENCH FOR BATHING. PT HAS PAST HH HX WITH [facility]. PT HAS 0 HX OF SNF. PT MAY BENEFIT FROM HH AT D/C. CM WILL REMAIN AVAILABLE TO ASSIST AND FOLLOW NEEDED.
[2021-03-15 12:00] VITALS: BP 126/56
[2021-03-15 16:00] VITALS: BP 102/49
[2021-03-15 20:00] VITALS: BP 115/53
[2021-03-16] VITALS: BP 127/60
[2021-03-16 04:00] VITALS: BP 125/61
[2021-03-16 04:36] LABS: HEMATOCRIT 24.6 % (37.0-47.0); MCH 24.9 pg (26.0-34.0); MCHC 32.5 g/dL (28.0-37.0); MCV 76.6 fL (80.0-100.0); MPV 7.3 fl. (7.2-11.1); RBC 3.21 mil/uL (4.20-5.00); RDW-CV 22.1 % (10.5-14.5); WBC 5.3 thou/uL (4.0-11.0)
[2021-03-16 04:41] LABS: CALCIUM 8.2 mg/dL (8.5-10.1); CREATININE 0.9 mg/dL (0.6-1.3); POTASSIUM 3.6 mmol/L (3.5-5.1)
--- NOTE | 2021-03-16 04:43 | NUR ---
PT ALERT ORIENTED. USE CALL LIGHT APPROPRIATELY. UP WITH STD BY ASSIST. CTRS TRACING SR. ON RA. TYLENOL GIVEN HS FOR GENERALIZED PAIN.
[2021-03-16 08:00] VITALS: BP 126/49
[2021-03-16 12:33] VITALS: BP 130/55
--- NOTE | 2021-03-16 13:08 | PATH ---
[address] [address] PATHOLOGY RPT PROCEDURE Name: DAVID VOGEL I Room: [address] IN .R.#: [id number] Admission: 03/13/21 Date of : 38 Discharge: Report #: [id number] Path Case #: [id number] [facility] Accession Number: [id number] . 01 Material submitted: . PART A: duodenum - DUODENAL BIOPSY PART B: gastrointestinal site - GASTRIC BIOPSY . 01 Clinical history: . EGD IN OR GI BLEED, ANEMIA, WEAKNESS . 02 Diagnosis: A. Duodenal biopsy: - Moderate non-specific active duodenitis with prominence of Veronika's glands suggesting hyperplasia, negative for granulomas, viral inclusions and dysplasia/adenomatous change. . B. 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 ([facility]IR[facility]/db; 03/16/2021) . Special stain on B: H. pylori immuno LBQ 03/16/2021 1301 Local . 02 Electronically signed: . Rob Newman MD, Pathologist NPI- [id number] . 01 Gross description: . A. The specimen is received in formalin, labeled "David Vogel, duodenal biopsy". Received is a segment of pale hunt tissue measuring 0.5 cm in maximum dimensions. The specimen is submitted entirely in cassette A1. . B. The specimen is received in formalin, labeled "David Vogel, gastric biopsy". Received are 2 segments of pale hunt tissue ranging in size from 0.5 to 0.7 cm in maximum dimensions. The specimen is submitted entirely in cassette B1. ([facility]; 03/15/2021) [facility] 03/15/2021 1540 Local . 02 Pathologist provided ICD-10: K29.80, K29.50 . 02 CPT . 839426, [id number], [id number] [place] [address] PATHOLOGY RPT PROCEDURE Name: DAVID VOGEL I Room: [address] IN [facility]#: [id number] Admission: 03/13/21 Date of : 38 Discharge: Report #: [id number] Path Case #: [id number] Specimen Comment: A courtesy copy of this report has been sent to [phone], [phone] Specimen Comment: [phone], Specimen Comment: Report sent to , DR GARZA / DR ROSALES Performed at: [address], [place], [place] [id number] MD Chip Crolwey MD Phone: [phone] Performed at: 02 [facility] [address], [place], [place] [id number] MD Rob Newman MD Phone: [phone]
[2021-03-16 13:12] VITALS: BP 130/55
[2021-03-16] MEDS ORDERED: CARAFATE 1 GM TA1 G1 PO (13:31)
[2021-03-16] MEDS ORDERED: PROTONIX40 M2 PO (13:31)
--- NOTE | 2021-03-16 15:36 | NUR ---
Discharge instructions given to the patient. No concerns voiced at this time. The patient's daughter will be arriving soon to transport her home. IV access removed.
--- NOTE | 2021-03-16 15:38 | NUR ---
PHYSICIAN INFORMS OF PLAN FOR THE PT TO D/C HOME WITH SELF-CARE. NO CM D/C PLANNING NEEDS ANTICIPATED. CM WILL REMAIN AVAILABLE TO ASSIST AND FOLLOW NEEDED.
--- NOTE | 2021-03-16 16:18 | NUR ---
[facility] in [place] [phone]
--- NOTE | 2021-03-18 16:13 | CON ---
[address] [address] CONSULTATION Name: DAVID VOGEL I Room: [address] IN M.R.#: [id number] Admission: 03/13/21 Attend Phys: Eagle Briggs MD Discharge: 03/16/21 Date of : 38 Report #: [id number] THIS REPORT FOR: cc: Donna Lawson Maggie M. DO Namin, Farid M. MD ~ cc: Donna Lawson MD DATE OF CONSULTATION: 03/14/2021 Please note at the time of this dictation, the patient was seen and physically examined by myself. REASON FOR CONSULTATION: Acute anemia. HISTORY OF PRESENT ILLNESS: This is an 80-year-old female who lives with her son and rjlloqul-ys-wbi for the past year, who was reporting increased weakness, which started last week and progressively got worse along with increased confusion during the day. She also was having some mild abdominal discomfort in the upper quadrants, which prompted them to call EMS to bring her in for further evaluation. In talking with the vahhjxtx-im-aeh, Irma, she states she has been living with them for the past year and prior to that, she did have an issue similar to this where she was taken to the Emergency Room in a very small [facility] in [place] in which she had stated she had black stools and she was told to take high doses of iron, which the patient has been doing since that time. To her recollection, there was never any upper or lower scopes done and the patient is not able to give me any information in regards to that as well. She denies any ibuprofen and that is confirmed with the dscirvzh-dv-xtj as well. She does not see a heart or lung doctor and is in relatively good state of health. She states she does have a good appetite. She denies any issues with acid reflux or any difficulty swallowing. She states her bowels typically move daily, soft and formed and on occasion, she has noted some black stools. She does not recall here recently, but they have been black in the past. ALLERGIES: CODEINE. MEDICATIONS FROM HOME: Include Aricept, B12, iron, vitamin D, levothyroxine and gabapentin. PAST MEDICAL HISTORY: History of anemia, neuropathy, curved spine, hypothyroidism, dementia, history of a CVA, bladder prolapse. PAST SURGICAL HISTORY: She has got a nerve stimulator in her back and knee surgery as well [place] [address] CONSULTATION Name: DAVID VOGEL I Room: [address]#: [id number] Admission: 03/13/21 Attend Phys: Eagle Briggs MD Discharge: 03/16/21 Date of : 38 Report #: [id number] FAMILY HISTORY: Noncontributory. SOCIAL HISTORY: The patient denies any alcohol, tobacco or illegal drug use and lives with her son and spwrnpus-ji-ngu. REVIEW OF SYSTEMS: Twelve-point review of systems is essentially negative except what is mentioned in the HPI. PHYSICAL EXAMINATION: VITAL SIGNS: 36.8, pulse 80, respirations 15, blood pressure 145/53. HEART: Regular rate and rhythm. LUNGS: Diminished, but clear. ABDOMEN: Soft. Positive bowel sounds in all 4 quadrants with some tenderness noted in the upper quadrant. LABORATORY DATA: Hemoglobin on admission was 4.4. She has gotten 2 units of blood. She is up to 8.6. White count is 7.2, platelets 322. BUN on admission was 24, she is now 15. GFR is 60. Total bilirubin is 1.1, alkaline phosphatase 101, ALT 21, AST 15. Chest x-ray was negative. CT of the head was negative and CT of the abdomen showed diverticulosis and a large hiatal hernia. IMPRESSION: 1. Acute anemia. 2. Melanotic stool history. 3. Abdominal pain, upper. 4. Large hiatal hernia. 5. Dementia. PLAN: 1. EGD today with Dr. Coleman. 2. Protonix drip. Continue. 3. Further recommendations to be made after the procedure has been performed later today. Thank you for allowing us to participate in this patient's care. Please do not hesitate to call with any questions regarding this consult. <ELECTRONICALLY SIGNED> By: Yousuf Coleman MD 03/18/21 1613 0834 Yousuf Coleman MD /nt
== END 2021-03-16 16:10 | disposition home or self-care (01) | DRG 377 ==
LOC: M.ERS 15:37 → M.TBA-ER 17:00 → M.2W 03-14 14:48
PROVIDERS: Family Medicine; Internal Medicine; ADMIT Internal Medicine; ATTEND Internal Medicine
PROC: 0DB98ZX Excision of Duodenum, Via Natural or Artificial Opening Endoscopic, Diagnostic (ICD-10-PCS; principal; 2021-03-14)
PROC: 30233N1 Transfusion of Nonautologous Red Blood Cells into Peripheral Vein, Percutaneous Approach (ICD-10-PCS; principal; 2021-03-14)
PROC: 0DB68ZX Excision of Stomach, Via Natural or Artificial Opening Endoscopic, Diagnostic (ICD-10-PCS; principal; 2021-03-14)
DX: K25.4 Chronic or unspecified gastric ulcer with hemorrhage (principal); G93.41 Metabolic encephalopathy; D62 Acute posthemorrhagic anemia; G62.9 Polyneuropathy, unspecified; E03.9 Hypothyroidism, unspecified; K44.9 Diaphragmatic hernia without obstruction or gangrene; E83.51 Hypocalcemia; G30.9 Alzheimer's disease, unspecified; F02.80 Dementia in other diseases classified elsewhere, unspecified severity, without behavioral disturbance, psychotic disturbance, mood disturbance, and anxiety; L53.8 Other specified erythematous conditions; K57.30 Diverticulosis of large intestine without perforation or abscess without bleeding; Z20.822 Contact with and (suspected) exposure to COVID-19; Z90.49 Acquired absence of other specified parts of digestive tract; Z86.73 Personal history of transient ischemic attack (TIA), and cerebral infarction without residual deficits; Z79.899 Other long term (current) drug therapy; Z88.5 Allergy status to narcotic agent